=== PATIENT | female | born 2000 | race Caucasian/White ===

== ENCOUNTER 2018-02-09 20:40 | Observation (INO) ==
[2018-02-09] MEDS ORDERED: Ondansetron ODT 4 MG TAB.RAPDIS SL PRN (21:08)
[2018-02-09 21:20] LABS: Bilirubin,Urine Negative (Negative); Blood,Urine Negative (Negative); Clarity,Urine Cloudy (Clear); Color,Urine Yellow (Yellow); Glucose,Urine (UA) Normal (Normal); Ketones,Urine Negative (Negative); Leukocyte Esterase,Urine Negative (Negative); Nitrite,Urine Negative (Negative); Protein,Urine Negative (Neg-Trace); Specific Gravity,Urine 1.006 (1.010-1.025); Urobilinogen,Urine Normal (Normal)
[2018-02-09 21:21] LABS: Bacteria,Urine Moderate per hpf (None-Few); Hyaline Casts,Urine None Seen per lpf (None-Few); RBC,Urine 0-3 per hpf (0-3); Squamous Epithelial Cell,Urine Many per lpf (None-Few)
--- NOTE | 2018-02-09 21:21 | OB/GYN Progress Note ---
Date of Encounter: 02/09/18 Time of Encounter: 21:19 - Assessment and Plan (1) 39 weeks gestation of Current Visit: Yes Status: Acute admitted for observation (2) Nausea and vomiting during Current Visit: Yes Status: Acute Zofran ODT UA sent PO hydration encouraged (3) NST (non-stress test) reactive on surveillance Current Visit: Yes Status: Acute FHR baseline 130 bpm moderate variability +15x15 accels no decels noted. Cat. 1 tracing Subjective - Subjective Principal diagnosis: nausea and vomiting in Interval history: Patient is a 17 y/o at 39w0d presents to labor and delivery with complaints of nausea and vomiting that started last night after dinner. Patient denies contractions, LOF or VB. Patient reports good movement. Patient reports she had intercourse twice today but has been unable to keep food down. Patient denies fever, chills or diarrhea. Antepartum ROS: movement normal, no loss of fluid, no vaginal bleeding, no contractions Objective - Vital Signs Vital Signs: Intake and Output 02/09/18 02/09/18 02/09/18 07:59 15:59 23:59 Other: Weight 77.9 kg Patient Weight 02/09/18 23:59 Weight 77.9 kg - Exam FHR: auscultation normal, category 1 FHR comments: 130 bpm moderate variability +15x15 accels no decels noted. Contraction x1 noted. Cat. 1 tracing. Auscultation: bilateral: normal Abdomen: Present: normal appearance, soft, gravid Uterus: Present: normal, firm
[2018-02-09 21:22] LABS: Amphetamine Screen,Urine Negative ng/mL (Cutoff=1000); Barbiturate Screen,Urine Negative ng/mL (Cutoff=200); Benzodiazepines Screen,Urine Negative ng/mL (Cutoff=200); Cannabinoid Screen,Urine Negative ng/mL (Cutoff = 50); Cocaine Screen,Urine Negative ng/mL (Cutoff= 300); Opiate Screen,Urine Negative ng/mL (Cutoff=300); Phencyclidine Screen,Urine Negative ng/mL (Cutoff=25)
== END 2018-02-09 22:06 | disposition home or self-care (01) ==
LOC: 1NENULAB
PROVIDERS: ADMIT Advanced Practice Midwife; ATTEND Advanced Practice Midwife

== ENCOUNTER 2018-02-18 06:00 | Inpatient (IN) ==
[2018-02-18] MEDS ORDERED: Lidocaine 1% 20 ML MDV ID PRN (06:29)
[2018-02-18] MEDS ORDERED: Naloxone 0.4 MG/ML INJ IVP PRN (06:29)
[2018-02-18] MEDS ORDERED: Metoclopramide 10 MG/2 ML VIAL IVP PRN (06:29)
[2018-02-18] MEDS ORDERED: Famotidine 20 MG/2 ML VIAL IVP PRN (06:29)
[2018-02-18 06:47] LABS: Amphetamine Screen,Urine Negative ng/mL (Cutoff=1000); Barbiturate Screen,Urine Negative ng/mL (Cutoff=200); Basophils % 0.2 %; Eosinophils # 0.1 K/mcL (0.0-0.6); Eosinophils % 1.1 %; Hematocrit 34.1 % (35.3-44.9); Hemoglobin 11.7 g/dL (11.5-15.4); Lymphocytes % 19.6 %; Mean Corpuscular HGB Conc 34.3 g/dL (31.6-35.5); Mean Corpuscular Hemoglobin 31.1 pg (28.0-33.3); Mean Corpuscular Volume 90.7 fL (83.0-100.0); Mean Platelet Volume 9.9 fL (9.4-12.4); Monocytes # 0.6 K/mcL (0.0-1.3); Monocytes % 6.1 %; Neutrophils # 7.3 K/mcL (1.6-8.9); Platelet Count 226 K/mcL (140-400); Red Blood Count 3.76 M/mcL (3.82-4.97); Red Cell Distribution Width 13.7 % (11.5-14.5)
[2018-02-18 06:48] LABS: Benzodiazepines Screen,Urine Negative ng/mL (Cutoff=300); Cannabinoid Screen,Urine Negative ng/mL (Cutoff = 50); Cocaine Screen,Urine Negative ng/mL (Cutoff= 300); Opiate Screen,Urine Negative ng/mL (Cutoff=300); Phencyclidine Screen,Urine Negative ng/mL (Cutoff=25)
[2018-02-18] MEDS: miSOPROStol 25 MCG TABLET PO PRN ×2 (06:54→11:23)
[2018-02-18] MEDS ORDERED: Famotidine 20 MG TABLET PO ONE (09:00)
--- NOTE | 2018-02-18 11:04 | Anesthesia Evaluation PreOp ---
Date of Encounter: 02/18/18 Time of Encounter: 11:02 - Past History Planned Operation: mandeep Cardiac History: Denies any Significant Hx Pulmonary History: Denies Any Significant HX PROFESSOR OF SURGERY History: Denies Any Significant HX Other Medical History: GERD Anesthesia History: No Prior Anesthetic Complications, Past Anesthesia (ankle) : Yes Test: Positive Alcohol Use: none Drug use: none Medications and Allergies 3 Allergy/AdvReac Type Severity Reaction Status Date / Time Amoxicillin Allergy Rash Verified 02/09/18 20:53 - Meds/Allergy Pre-op Review Medications Reviewed: Yes Allergies Reviewed: Yes Beta Blockers on Current Med List: No Anesthesia Results - Labs 02/18/18 06:23 Anesthesia Exam 139/84 106 16 fht 133 Height: 5'5" Weight: 175 Pain Scale: 2 Pain Scale Used: Numeric (1 - 10) - HEENT Pupil (Motor): Pupils equal Mallampati: II Teeth: Normal Oral Opening: Greater than 3 - PROFESSOR OF SURGERY LOC: Oriented PROFESSOR OF SURGERY Motor: Normal RUE, Normal LUE, Normal RLE, Normal LLE, Normal Face PROFESSOR OF SURGERY Sensory: Normal: RUE, LUE, RLE, LLE, Face - Cardiac Rhythm: Regular Murmur: None - Pulmonary Breath Sounds: bilateral Clear Respiratory Effort: Symmetrical Anesthesia Assess/Plan ASA Score: 2 Modified [place] Scale for Level of Consciousness: Cooperative, oriented, and tranquil Anesthetic Plan: Regional Autologous Blood: No Monitoring Plan: Standard Monitors Recovery Plan: Other (risks discussed questions answered, consented)
--- NOTE | 2018-02-18 11:24 | OB Labor Progress Note ---
Date of Encounter: 02/18/18 Time of Encounter: 11:22 Labor Progress Note - Subjective Subjective: Pt states feels some contractions - Cervix Cervix: 1/75/-2 - Heart Tones Heart Tones: 135/moderate/+accels/-decels - [place]: q4-6 - Interventions Interventions: Cervical ricketts placed - Plan Plan: 50 mcg cytotec cerivcal ricketts placed nubain and epidural as desired anticipate
[2018-02-18] MEDS: Ringers Solution, Lactated 1,000 ML IVC SCH ×2 (11:53→17:13)
[2018-02-18] MEDS: *HR* Nalbuphine 10 MG/ML AMPUL IVP PRN ×2 (13:00→17:13)
--- NOTE | 2018-02-18 18:33 | OB/GYN History & Physical ---
Date of Encounter: 02/18/18 Time of Encounter: 18:17 Assessment and Plan (1) 40 weeks gestation of Current visit: Yes Status: Acute (2) Elective induction of labor planned Current visit: Yes Status: Acute Induction of labor with Cytotec and cervical Thomas Nubain and epidural as desired Anticipate History of Present Illness Chief complaint: induction of labor HPI: Ms. Vivar is a 17 year old female presents for induction of labor for postdates . Reports good movement, denies vaginal bleeding contractions or leaking of fluid care with midwives, uncomplicated course Labs: A+, rubella immune, varicella immune, GBS negative, all other serologies negative Past Med Surg Social Fam HX - Past Medical History Medical history: no medical history Psychiatric history: no psych history - Past Surgical History Additional surgical history: left ankle surgery - Social History Smoking Status: Former smoker Smokeless Tobacco Status: No Alcohol use: none Drug use: none - Family History Mother Living Status: Still Living Hx Family Cardiac Disorders: No Hx Family Respiratory Disorders: No Hx Family Cancer: No Hx Family GI Disorders: No Hx Family Genitourinary Disorders: No Hx Family Endocrine Disorder: No Hx Family Musculoskeletal Disorders: No Hx Family Neuromuscular Disorders: No Hx Family Neurologic Disorders: No Hx Family HEENT Disorders: No Hx Family Autoimmune Disorders: No Hx Family Reproductive Disorders: No Hx Family Psychosocial Disorders: No Hx Family Medical Disorders: No Obstetrical History - Pregnancies : 1 Para: 0 Term: 0 : 0 Ab's: 0 Livin Medications and Allergies 3 Allergy/AdvReac Type Severity Reaction Status Date / Time Amoxicillin Allergy Rash Verified 02/09/18 20:53 Exam - Constitutional Constitutional: well developed, well nourished, no acute distress, average body habitus - Neck Neck exam: full ROM - Lungs Respiratory exam: CTAB - Cardiovascular Cardiovascular exam: RRR - Abdomen Abdomen: Present: bowel sounds normal, gravid, non tender - Extremities Extremities exam: normal capillary refill, normal inspection Results Result Diagrams: 02/18/18 06:23 Abnormal lab results RBC 3.76 M/mcL (3.82-4.97) L 02/18/18 06:23 Hct 34.1 % (35.3-44.9) L 02/18/18 06:23 All other labs normal.
--- NOTE | 2018-02-18 20:29 | OB Labor Progress Note ---
Date of Encounter: 02/18/18 Time of Encounter: 20:26 Labor Progress Note - Subjective Subjective: Pt states feeling contractions, desires epidural - Cervix Cervix: 6/80/-2 - Heart Tones Heart Tones: 120/moderate/+accels/-decels - [place]: adjusted - Interventions Interventions: AROM for small amount clear fluid. - Plan Plan: Start pitocin per policy frequent repositioning anticipate
[2018-02-18] MEDS ORDERED: Oxytocin 20 units/ LR 1000 mL 20 UNIT/1,000 ML BAG IVC SCH (20:30)
[2018-02-18] MEDS ORDERED: *HR* FentaNYL (PF) 100 MCG/2 ML VIAL ONE (20:39)
[2018-02-18] MEDS ORDERED: *HR* Ropivacaine/PF 0.2% 20 ML VIAL ONE (20:40)
[2018-02-18] MEDS ORDERED: Epidural Premix (fent/bupiv) 110 ML EP ONE (21:01)
--- NOTE | 2018-02-18 21:10 | Anesthesia Procedures ---
Date of Encounter: 02/18/18 Time of Encounter: 21:08 Procedures: Anesthesia - Epidural/Spinal Patient ID/Chart reviewed: Yes Patient examined: Yes OB Eval: Gestational age: 40 OB Eval: : 1 OB Eval: Hx Para: 0 OB Eval: Dilated at (cm): 6 OB Eval: Contractions: Non-stressed pattern Consent Obtained: Yes Supplemental Oxygen: None/Room Air Site Prep: Aseptic Technique, Sterile prep and drape, 0.5% Chlorhexidine/Alcohol Patient position: upright Local Anesthetic: Lidocaine 1% Amount of Local Anesthetic used: 3 Touhy Needle Gauge: 18 Touhy Needle Depth (cm): 8 Catheter Depth at Skin (cm): 15 Test Dose (1.5% Lido + Epi): Volume given (mls): 3 Test Dose Result: Negative Loading Dose: Fentanyl (mcg): 100 Loading Dose: Other: rop 0.2% 10 cc Loading Dose Administered: Thru Touhy Needle Infusion Med: 0.125% Bupivacaine w/ 2 mcg/ml Fentanyl Infusion Rate (mls/hr): 15 (pcea 5cc q30") Catheter Secured in Place: Tegaderm Interspace Used: L2-L3 Loss of Resistance (GALINA): Yes Blood: No CSF: No Paresthesia: No Procedure: aseptic, daniel well, VSS, effective Vitals + FHT's: 104/78 89 16 fht 134
--- NOTE | 2018-02-18 23:53 | OB Labor Progress Note ---
Date of Encounter: 02/18/18 Time of Encounter: 23:51 Labor Progress Note - Subjective Subjective: Pt comfortable with epidural - Cervix Cervix: 6/80/-1 - Heart Tones Heart Tones: 125/moderate/+accels/variable - [place]: IUPC needed - Interventions Interventions: IUPC placed without difficulty - Plan Plan: Continue pitocin per policy Frequent repositioning with peanut ball Anticipate
[2018-02-19] MEDS ORDERED: Epidural Premix (fent/bupiv) 110 ML EP ONE (02:53)
--- NOTE | 2018-02-19 07:01 | OB/GYN Procedure Note ---
Delivery - Delivery Date: 02/19/18 Provider: Lucretia Samuel Intrapartum events: none Delivery induction: AROM, oxytocin, ricketts, misoprostol Delivery monitor: external FHT, external uterine, internal uterine Anesthesia: epidural Quantitated Blood Loss: 400 - Infant (s) Infant A Delivery Date: 02/19/18 Infant Delivery Time: 06:16 Presentation: vertex Position: OA Route of delivery: Gender: Male Viability: Viable Pounds: 6 Ounces: 14 Weight Gram: 3.115 kg at 1 minute: 8 at 5 mins: 9 Shoulder Dystocia: not encountered Specimens collected: cord blood Placenta: spontaneous Cord: nuchal cord, 3 umbilical vessels - Repair Episiotomy: none Laceration Description: Labial - Complications Delivery complications: none Delivery comments: Induction of labor with Cytotec, cervical Ricketts and Pitocin. Progressed to complete maternal bearing down efforts to of liveborn male. Vertex delivered OA, nuchal cord identified, and infant delivered through nuchal, shoulders and body followed, no shoulder dystocia encountered. Vigorous placed on maternal abdomen, Apgars 8/9. Placenta delivered spontaneously ( [place]) and complete upon inspection, velamentous cord insertion noted on inspection. Pitocin started per policy and fundus massaged until firm. Bilateral labial lacerations noted hemostatic and left unrepaired. EBL 400. Delivery assisted by Kenia Duque OMS-3 - Disposition Mom disposition: stable in LDR disposition: stable in LDR
[2018-02-19] MEDS ORDERED: Benzocaine/Menthol 56 GM AEROSOL SPRAY TP PRN (08:24)
[2018-02-19] MEDS ORDERED: Lanolin 7 G OINT...G. TP PRN (08:24)
[2018-02-19] MEDS ORDERED: Acetaminophen 325 MG TABLET PO PRN (08:24)
[2018-02-19] MEDS ORDERED: Ibuprofen 600 MG TABLET PO PRN (08:24)
[2018-02-19] MEDS ORDERED: Measles/Mumps/Rubella Vacc 0.5 ML VIAL SQ PRN (08:24)
[2018-02-19] MEDS ORDERED: Oxytocin 20 units/ LR 1000 mL 20 UNIT/1,000 ML BAG IVC SCH (08:24)
[2018-02-19] MEDS ORDERED: Prenatal Vit/FA 1 EACH TABLET PO SCH (09:00)
[2018-02-20 04:13] LABS: Basophils % 0.2 %; Eosinophils # 0.2 K/mcL (0.0-0.6); Eosinophils % 1.6 %; Hematocrit 28.4 % (35.3-44.9); Immature Granulocytes % 0.6 % (0-4); Lymphocytes # 2.2 K/mcL (0.6-4.6); Mean Corpuscular HGB Conc 33.5 g/dL (31.6-35.5); Mean Corpuscular Hemoglobin 30.1 pg (28.0-33.3); Mean Corpuscular Volume 89.9 fL (83.0-100.0); Mean Platelet Volume 9.8 fL (9.4-12.4); Neutrophils # 8.8 K/mcL (1.6-8.9); Platelet Count 169 K/mcL (140-400); Red Blood Count 3.16 M/mcL (3.82-4.97); Red Cell Distribution Width 13.7 % (11.5-14.5); Segmented Neutrophils % 71.6 %
[2018-02-20 04:14] LABS: Hemoglobin 9.5 g/dL (11.5-15.4)
--- NOTE | 2018-02-20 08:51 | Discharge Summary ---
Date of Encounter: 02/20/18 Time of Encounter: 08:49 - Discharge Diagnosis (1) Vaginal delivery Priority: Primary Status: Acute Comments: continue care discharge home today follow up with CNM in 4-6 weeks (2) Contraception Priority: Secondary Status: Acute Comments: Depo provera prior to discharge Qualifiers: Contraceptive encounter type: initial prescription Contraceptive type: injectable Qualified Code(s): Z30.013 - Encounter for initial prescription of injectable contraceptive - Discharge Medications Prescriptions: Ibuprofen [Motrin] 600 mg PO Q6HR PRN #60 tablet PRN Reason: Cramping Home Medications: Benzocaine/Menthol [place] [Dermoplast [place]] 1 appl TP QID PRN aerosol 02/20/18 [Rx] Ibuprofen [Motrin] 600 mg PO Q6HR PRN #60 tablet 02/20/18 [Rx] Vit/FA 1 each PO DAILY tablet 02/20/18 [Rx] Allergies/Adverse Reactions: 3 Allergy/AdvReac Type Severity Reaction Status Date / Time Amoxicillin Allergy Rash Verified 02/09/18 20:53 Data Procedures and tests throughout hospitalization: Laboratory Tests 02/18/18 02/18/18 02/20/18 06:23 06:23 03:56 WBC 10.2 12.2 H RBC 3.76 L 3.16 L Hgb 11.7 9.5 L D Hct 34.1 L 28.4 L MCV 90.7 89.9 MCH 31.1 30.1 MCHC 34.3 33.5 RDW 13.7 13.7 Plt Count 226 169 MPV 9.9 9.8 Immature Gran % 1.0 0.6 Seg Neutrophils % 72.0 71.6 Lymphocytes % 19.6 18.0 Monocytes % 6.1 8.0 Eosinophils % 1.1 1.6 Basophils % 0.2 0.2 Neutrophils # 7.3 8.8 Lymphocytes # 2.0 2.2 Monocytes # 0.6 1.0 Eosinophils # 0.1 0.2 Basophils # 0.0 0.0 Urine Opiates Screen Negative Ur Barbiturates Screen Negative Ur Phencyclidine Scrn Negative Ur Amphetamines Screen Negative U Benzodiazepines Scrn Negative Urine Cocaine Screen Negative U Marijuana (THC) Screen Negative Ur Drug Screen Interp See Below Labs on day of discharge: Labs from last 24 hours 02/20/18 03:56 WBC 12.2 H RBC 3.16 L Hgb 9.5 L D Hct 28.4 L MCV 89.9 MCH 30.1 MCHC 33.5 RDW 13.7 Plt Count 169 MPV 9.8 Immature Gran % 0.6 Seg Neutrophils % 71.6 Lymphocytes % 18.0 Monocytes % 8.0 Eosinophils % 1.6 Basophils % 0.2 Neutrophils # 8.8 Lymphocytes # 2.2 Monocytes # 1.0 Eosinophils # 0.2 Basophils # 0.0 Date of admission: 02/18/18 06:02 Primary care physician: PCP NONE Consults: 02/19/18 08:24 Consult to [employer] [employer] [facility] [CONS] Routine Comment: Vaginal delivery, consult needed Discharging clinician: Alyssa Darby Anticipated date of discharge: 02/20/18 - Patient Status Disposition: Home, Self-Care Condition: Good Functional capacity at discharge: independent ambulation - Discharge Instructions Follow Up With: NONE,PCP [Primary Care Provider] - Lucretia Samuel CNM [Advanced Practice Nurse] - - Diet and Activity Activity: increase activity as tolerated Diet: regular diet Hospital Course Delivery: Episiotomy: none Laceration: other (bilateral labial lacerations) complications: none Discharge diagnosis: IUP at term delivered baby: male (bottle feeding) Time Attestation: Total time spent providing and/or coordinating discharge services: Time Spent: Less than 30 minutes Exam - Constitutional Vitals: Temp Pulse Resp BP Pulse Ox 97.6 F 82 16 119/79 98 02/20/18 04:00 02/20/18 04:00 02/20/18 04:00 02/20/18 04:00 02/20/18 04:00 General appearance IM: A&O X 3, pleasant, answers questions appropriately - Respiratory Respiratory exam: Present: CTAB - Cardiovascular Cardiovascular exam IM: Present: RRR, +S1, +S2 - GI/Abdominal GI/Abdominal exam IM: normal bowel sounds - Uterine Tone: Firm Uterus Position: 1 Finger Below Umbilicus, Midline - Extremities Exam Extremities exam IM: Present: full ROM, normal capillary refill, normal inspection - Neurological Exam Neurological exam: alert, oriented X3, reflexes normal
[2018-02-20 09:44] VITALS: BP 128/81
== END 2018-02-20 11:00 | disposition home or self-care (01) | DRG 560 ==
LOC: 1NENULAB 06:02 → 1NENUOBS 02-19 09:11
PROVIDERS: ADMIT Advanced Practice Midwife; ATTEND Advanced Practice Midwife